=== PATIENT | male | born 1950 | race Caucasian/White ===

== ENCOUNTER → 2019-10-25 | Outpatient (CLI) | payer MEDICARE, OTHER ==
--- NOTE | 2019-10-25 12:39 | Diagnostic Imaging Report ---
EXAMINATION: Magnetic resonance imaging of the right shoulder without contrast. DATE: October 25, 2019. COMPARISON: None. HISTORY: 69-year-old male, right shoulder pain. TECHNIQUE: Magnetic Resonance Imaging sequences were performed of the shoulder without contrast. FINDINGS: ROTATOR CUFF, LIGAMENTS, TENDONS, AND MUSCLES: There is a greater than 75% partial bursal sided tear of the infraspinatus tendon measuring approximately 11 mm in width with the tear measuring approximately 10 mm in medial to lateral extent. There is an interstitial tear involving the very posterior aspect of the supraspinatus tendon. There is additional supraspinatus and infraspinatus tendinopathy. The teres minor tendon is intact. The subscapularis tendon is intact. There is atrophy of the teres minor muscle. LONG HEAD OF BICEPS: The long head of biceps tendon is in the bicipital groove. There is a very small caliber portion of the long head of biceps tendon in its intra-articular segment . This likely relates to a partial tear of the long head of biceps tendon. GLENOHUMERAL JOINT: The humeral head is well positioned relative to the glenoid. There are broad areas of full-thickness cartilage loss of the glenoid and full thickness to near full-thickness cartilage loss of the humeral head. There are prominent osteophytes extending off the inferior aspect of the humeral head. There is adjacent degenerative related marrow edema. There is no identified intra-articular body or prominent synovitis. There is a small to moderate glenohumeral joint effusion. There is degenerative related tearing of the labrum. There is no sizable paralabral cyst. ACROMIOCLAVICULAR JOINT: There is widening of the acromioclavicular joint relating to postoperative changes. The coracoclavicular and coracoacromial ligaments are intact. There are no undersurface acromial clavicular osteophytes. BONE: There is no os acromiale. There is no acute fracture. There is no evidence of osteonecrosis. BURSAE AND SOFT TISSUES: There is fluid in the subacromial subdeltoid bursa consistent with bursitis and/or recent injection. IMPRESSION: 1. Greater than 75% partial bursal sided tear of the infraspinatus tendon measuring 11 mm in width and 10 mm in medial to lateral extent. Interstitial tear of the subscapularis tendon. Additional supraspinatus and infraspinatus tendinopathy. 2. Postoperative widening of the acromioclavicular joint. 3. Severe glenohumeral arthritis with small to moderate glenohumeral joint effusion. No identified intra-articular body or prominent synovitis. 4. Probable partial tear of the proximal long head of biceps tendon with very diminutive caliber of the intra-articular segment of the long head of biceps tendon. 5. No acute fracture or evidence of osteonecrosis. 6. Fluid in the subacromial subdeltoid bursa consistent with bursitis and/or recent injection. Dictated by: Dictated on workstation # [id number]
== END ==
LOC: RAD 10:09
PROVIDERS: ATTEND Nurse Practitioner Family
DX: S46.011A Strain of muscle(s) and tendon(s) of the rotator cuff of right shoulder, initial encounter (principal); M19.011 Primary osteoarthritis, right shoulder; M25.411 Effusion, right shoulder; Z98.890 Other specified postprocedural states
CPT/HCPCS: 73221

== ENCOUNTER → 2020-04-14 | Outpatient (CLI) | payer MEDICARE, OTHER ==
--- NOTE | 2020-04-14 12:56 | Diagnostic Imaging Report ---
INDICATION: Chronic low back pain. TECHNIQUE: Five views of the lumbar spine were obtained. FINDINGS: There are post surgical changes of a thoracolumbar fusion from T11 through L3 with bilateral pedicle screws and rods. The alignment is grossly normal. The hardware is intact. There is multilevel degenerative disc disease. There is lower lumbar facet disease. There is no abnormal subluxation with flexion or extension. There appears to be a mild chronic compression fracture of T12. IMPRESSION: Extensive post surgical changes and degenerative changes in the lumbar spine as described. Mild chronic compression fracture of T12. Dictated by: Dictated on workstation # [id number]
== END ==
LOC: RAD FS 10:19
PROVIDERS: ATTEND Nurse Practitioner
DX: M48.062 Spinal stenosis, lumbar region with neurogenic claudication (principal); M47.816 Spondylosis without myelopathy or radiculopathy, lumbar region; Z98.1 Arthrodesis status
CPT/HCPCS: 72110

== ENCOUNTER → 2020-11-12 | Outpatient (CLI) | payer MEDICARE, OTHER ==
--- NOTE | 2020-11-12 15:35 | Diagnostic Imaging Report ---
INDICATION: Bilateral knee pain. COMPARISON: None FINDINGS: Multiple radiographic views of bilateral knees were obtained. There is no acute fracture or dislocation. Osseous structures are intact. Joint spaces are maintained. There is mild tricompartmental osteoarthritis consisting of mild joint space narrowing and small osteophyte formations. Note is also made of bilateral chondrocalcinosis. No unexpected radiopaque foreign bodies are seen. There is no large joint effusion. IMPRESSION: 1. No acute fracture dislocation. 2. Mild osteoarthritic changes. 3. Bilateral chondrocalcinosis. Findings may be degenerative, but may also be seen with underlying CPPD. Dictated by: Dictated on workstation # [id number]
== END ==
LOC: RAD FS 13:12
PROVIDERS: ATTEND Nurse Practitioner
DX: M11.262 Other chondrocalcinosis, left knee (principal); M11.261 Other chondrocalcinosis, right knee; M17.9 Osteoarthritis of knee, unspecified

== ENCOUNTER → 2021-05-14 | Outpatient (CLI) | payer MEDICARE, OTHER ==
--- NOTE | 2021-05-14 11:54 | Diagnostic Imaging Report ---
INDICATION: Right ankle pain. No history of trauma. FINDINGS: 3 views. Ankle mortise shows good alignment. Articulating surfaces are smooth. There are no fractures. No evidence of osteochondritis dissecans. There is rather dense vascular calcification noted. IMPRESSION: Normal right ankle. Dictated by: Dictated on workstation # [id number]
== END ==
LOC: RAD FS 10:56
PROVIDERS: ATTEND Allergy & Immunology
DX: M06.09 Rheumatoid arthritis without rheumatoid factor, multiple sites (principal)
CPT/HCPCS: 73610

== ENCOUNTER 2021-11-23 10:31 | Outpatient (RCR) | payer MEDICARE, OTHER | END 2021-12-11 | disposition home or self-care (01) | LOC: ONC 10:31 | PROVIDERS: ATTEND Internal Medicine Hematology & Oncology | DX: D72.0 Genetic anomalies of leukocytes (principal) | CPT/HCPCS: 99214 ==

== ENCOUNTER → 2021-12-08 | Outpatient (CLI) | payer MEDICARE, OTHER ==
--- NOTE | 2021-12-08 12:39 | Diagnostic Imaging Report ---
History: Right hip pain, arthritis TECHNIQUE: 2 views of the right hip COMPARISON: None FINDINGS: There are moderate degenerative changes in the right hip joint with mild chondrocalcinosis. There are moderate degenerative changes in the pubic symphysis. The right sacroiliac joint is patent. No focal bony lesions are seen. No acute fracture is seen. Alignment is normal. IMPRESSION: 1. Degenerative changes and mild chondrocalcinosis in the right hip with no acute osseous abnormality seen. Dictated by: Dictated on workstation # [id number]
== END ==
LOC: RAD FS 09:11
PROVIDERS: ATTEND Nurse Practitioner
DX: M16.11 Unilateral primary osteoarthritis, right hip (principal)
CPT/HCPCS: 73502

== ENCOUNTER → 2022-03-31 | Outpatient (CLI) | payer MEDICARE, OTHER ==
--- NOTE | 2022-03-31 13:12 | Diagnostic Imaging Report ---
CERVICAL SPINE 4 OR 5 VIEW INDICATION: Postop surveillance after ACDF COMPARISON: None available. TECHNIQUE: 4 views of cervical spine were obtained including flexion and extension FINDINGS: In neutral position, there is straightening of cervical spine due to ACDF from C4-C7. The lucent interbody spacers are well-positioned and there is no interosseous bridging across any of the intervertebral spaces. Anterior plate and screw construct is intact. No prevertebral soft tissue swelling. No dynamic instability on flexion and extension imaging. IMPRESSION: 1. ACDF of C4-C7 has no hardware complication or osseous fusion at this time. 2. No spondylolisthesis or dynamic instability. Dictated by: Dictated on workstation # [id number]
== END ==
LOC: RAD FS 09:24
PROVIDERS: ATTEND Nurse Practitioner
DX: Z09 Encounter for follow-up examination after completed treatment for conditions other than malignant neoplasm (principal); Z98.1 Arthrodesis status
CPT/HCPCS: 72050

== ENCOUNTER → 2022-07-12 | Outpatient (CLI) | payer MEDICARE, OTHER ==
--- NOTE | 2022-07-12 16:17 | Diagnostic Imaging Report ---
INDICATION: Right shoulder pain TECHNIQUE: Three views of the right shoulder CORRELATION STUDY: None FINDINGS: Postoperative changes of reversed right shoulder arthroplasty. Hardware intact. No acute bony abnormality. Alignment is near-anatomic. Also, resection of the distal clavicle. The visualized right upper lung field demonstrates a density in the lateral right mid lung. Partial visualization of ACDF. IMPRESSION: 1. Postoperative changes of reversed right shoulder arthroplasty. Negative for acute bony abnormality. 2. Coarse density lateral right mid lung. May very well reflect a calcified granuloma, however is incompletely characterized on this study. Correlation with chest radiograph would be recommended for initial follow-up assessment. Dictated by: Dictated on workstation # [id number]
== END ==
LOC: RAD FS 13:28
PROVIDERS: ATTEND Nurse Practitioner
DX: M25.511 Pain in right shoulder (principal); M25.512 Pain in left shoulder; Z96.611 Presence of right artificial shoulder joint
CPT/HCPCS: 73030

== ENCOUNTER → 2023-02-22 | Outpatient (CLI) | payer MEDICARE, OTHER | LOC: LABNPT 11:17 | PROVIDERS: ATTEND Registered Nurse Emergency | DX: R60.0 Localized edema (principal); M79.662 Pain in left lower leg | CPT/HCPCS: 85379 ==

== ENCOUNTER → 2023-06-08 | Outpatient (CLI) | payer MEDICARE, OTHER ==
[~2023-06-08] MED LIST: METH-732 PO; METH4TAB10 PO
[2023-06-08 14:01] LABS: ABSOLUTE RETIC # 79 10e9/uL (24-90); RETICULOCYTE % 1.56 % (0.50-2.40)
[2023-06-08 14:16] LABS: BAND NEUTROPHILS 0 %; BASOPHILS % (MANUAL) 0 %; EOSINOPHILS % (MANUAL) 1 %; LYMPHOCYTES % (MANUAL) 20 %; MONOCYTES % (MANUAL) 7 %; NEUTROPHILS % (MANUAL) 72 %
[2023-06-08 14:17] LABS: RBC MORPH NORMAL
== END ==
LOC: LABNPT 13:52
PROVIDERS: ATTEND Registered Nurse Emergency
DX: M54.59 Other low back pain (principal)
CPT/HCPCS: 85007; 85045; 85055